=== PATIENT | female | born 1975 | race Caucasian/White ===

== ENCOUNTER → 2016-07-31 | Outpatient (CLI) | payer BC ==
[~2016-07-31] MED LIST: B COMPLEX1 CA1 PO; BENTYL20 MG PO; CITRATE OF MAG300 ML PO; KLONOPIN0.5 MG PO; LORTAB 5/500 TA1 TA1 PO; MULTI-DAY VITAM1 TAB PO; PHENERGAN25 MG PO; WELLBUTRIN SR150 MG PO
--- NOTE | ~2016-07-31 | CT4 ---
[facility] A Service of [facility] RADIOLOGY TEXT RESULTS PATIENT: MONO BAIN LOCATION: [facility] : 79 UNIT #: [id number] AGE: [address]: STEPHANI ANG SEX: F ORDER DR: [id number] [place], [place] [address] [id number] O MR#: [id number] Acc #: [id number] NAME: MONO BAIN : 1975 SEX: F STUDY DATE/TIME: 07/31/2016 8:36 UNIT: [facility]AT ROOM: STUDY DESCRIPTION: CT Abd and Pelv Wo Cont Attending Physician: Stephani Ang Aprn Referring Physician: Stephani Ang Aprn Primary Care Physician: Jeaneth Car M.D. MEDICAL IMAGING REPORT This report is preliminary unless electronic signature is present EXAM CT abdomen and pelvis without contrast INDICATION 40-year-old female left-sided abdominal pain off and on for [address] of the abdomen and pelvis was performed without contrast. Coronal and sagittal reformatted images were obtained. This CT exam was performed with one or more of the following radiation dose reduction techniques: automatic exposure control, adjustment of mA and/or kV according to patient size, and iterative reconstruction. COMPARISON 08/16/2011 FINDINGS ABDOMEN: Lung bases clear. Cholecystectomy. Liver and spleen unremarkable. Kidneys, adrenal glands and pancreas are unremarkable. PELVIS: Trace free fluid likely physiologic. Colon unremarkable. Normal appendix. The bone windows are unremarkable. IMPRESSION There are no CT findings to explain the patient's symptoms. Dictated by... Jimbo Ramos M.D. THIS IS AN ELECTRONICALLY VERIFIED REPORT Jimbo Ramos M.D. at 08/01/2016 9:07 AM [email or web address]/[email or web address] [facility] A Service of [facility] RADIOLOGY TEXT RESULTS PATIENT: MONO BAIN LOCATION: [facility] : 79 UNIT #: [id number] AGE: [address]: STEPHANI ANG SEX: F ORDER DR: TD: 07/31/2016 12:14 JOB #: [id number] MEDICAL IMAGING REPORT Page 1 of 1 COPY
== END | disposition home or self-care (01) ==
LOC: CCAT 08:05
DX: R10.9 Unspecified abdominal pain (principal)
CPT/HCPCS: 74176